=== PATIENT | female | born 1975 | race Asian ===

== ENCOUNTER 2022-05-28 11:13 | Emergency (ER) | payer MEDICAID, OTHER ==
[~2022-05-28] VITALS: Ht 170.2 cm; Wt 53.5 kg
[2022-05-28 11:25] VITALS: BP 134/90
[2022-05-28] MEDS ORDERED: NAPR500T31 PO (12:24)
[2022-05-28] MEDS ORDERED: CLIN300C8 PO (12:24)
[2022-05-28] MEDS ORDERED: ACETAMINOPHEN 325 MG TAB PO ONE (12:30)
[2022-05-28] MEDS ORDERED: TETANUS-DIPTH-ACEL PERTUSSIS 0.5ML SYR Tdap IM ONE (12:30)
== END 2022-05-28 12:54 | disposition home or self-care (01) ==
LOC: ER 11:13
DX: S51.811A Laceration without foreign body of right forearm, initial encounter (principal); S51.851A Open bite of right forearm, initial encounter; S51.831A Puncture wound without foreign body of right forearm, initial encounter; Z79.2 Long term (current) use of antibiotics; Z79.899 Other long term (current) drug therapy; Z88.1 Allergy status to other antibiotic agents; W54.0XXA Bitten by dog, initial encounter; Y93.89 Activity, other specified; Y92.89 Other specified places as the place of occurrence of the external cause; Y99.8 Other external cause status
CPT/HCPCS: 12001; 90471; 90715; 99283; J2001